=== PATIENT | female | born 1960 | race Caucasian/White ===

== ENCOUNTER 2024-03-09 07:32 | Emergency (ER) | payer MEDICARE, MEDICAID ==
[2024-03-09] MEDS ORDERED: Morphine 4 MG/ML VIAL ONE (08:00)
[2024-03-09] MEDS ORDERED: Ondansetron PF 4 MG/2 ML Vial ONE (08:00)
[2024-03-09 08:03] LABS: Bilirubin Negative (Negative); Blood, Urine Trace (Negative); Clarity Slightly Cloudy (Clear); Glucose, Urine (Dipstick) Negative (Negative); Ketone, Urine Negative (Negative); Leukocyte Trace (Negative); Nitrite Positive (Negative); Protein, Urine (Dipstick) Negative (Neg-Trace); Urobilinogen 0.2 mg/dL (Less than 2)
[2024-03-09 08:09] LABS: Bacteria/HPF 4+ HPF (None Seen); CAUTI Indications for Culture Pelvic or flank pain; Calcium Oxalate Crystals Rare HPF (None Seen); RBC/HPF 0-3 HPF (0-3); Squamous Epithelial 0-3 HPF (0-3)
[2024-03-09 08:10] LABS: Urine Culture Reflex Yes Yes
[2024-03-09 08:16] LABS: ALT (SGPT) 16 U/L (8-55); AST (SGOT) 15 U/L (5-34); Albumin 2.6 g/dL (3.4-4.8); Alkaline Phosphatase 120 U/L (40-110); Anion Gap 12 mmol/L (10-20); BUN (Urea Nitrogen) 9 mg/dL (9.8-20.1); Bilirubin, Total 0.4 mg/dL (0.2-1.2); Calc. Creatinine Clearance 0 mL/min (70-130); Carbon Dioxide 21 mmol/L (23-31); Chloride 108 mmol/L (98-107); Estimated GFR 98; Globulin 4.2 g/dL (2.4-3.5); Glucose 96 mg/dL (80-115); Lipase 12 U/L (8-78); Potassium 3.3 mmol/L (3.5-5.1); Protein, Total 6.8 g/dL (5.8-8.1); Sodium 138 mmol/L (136-145)
[2024-03-09 08:20] LABS: Band 8 % (5-11); Eosinophils 1 % (0-10); Hemoglobin 8.5 g/dL (12.0-16.0); Hypochromia SLIGHT = 6-15 cells (100X) (0-5/hpf); Lymphocytes 24 % (21-51); MDiff Complete? YES; Mean Corpuscular HGB CONC 31.5 g/dL (32.0-36.0); Mean Corpuscular Hemoglobin 28.9 pg (27.0-31.0); Mean Corpuscular Volume 91.6 fl (78.0-98.0); Mean Platelet Volume 10.3 fL (7.4-10.4); Monocytes 12 % (0-10); Myelocyte 1 % (0-0); Neutrophil 52 % (42-75); Platelet Adequacy Comment Appears Decreased; Platelet Count 32 10x3/uL (130-400); RBC Distribution Width 14.4 % (11.5-14.5); Red Blood Cell (RBC) Count 2.95 mill/uL (4.20-5.40); White Blood Cell (WBC) Count 4.3 10x3/uL (4.8-10.8)
[2024-03-09] MEDS ORDERED: cefTRIAXone (ROCEPHIN) 1 GM VIAL ONE (08:41)
[2024-03-09] MEDS ORDERED: Orphenadrine Citrate 60 MG/2 ML VIAL ONE (08:41)
[2024-03-09] MEDS ORDERED: Iopamidol 370 76% 100 ML VIAL ONE (09:00)
[2024-03-09] MEDS ORDERED: Lidocaine 4% Patch ONE (09:12)
[2024-03-09] MEDS ORDERED: Morphine 2 MG/ML VIAL ONE (09:35)
== END 2024-03-09 10:13 | disposition home or self-care (01) ==
LOC: MADERS 07:32
DX: N39.0 Urinary tract infection, site not specified (principal); K50.90 Crohn's disease, unspecified, without complications; E87.6 Hypokalemia; D64.9 Anemia, unspecified; M62.838 Other muscle spasm; F17.210 Nicotine dependence, cigarettes, uncomplicated
CPT/HCPCS: 74177; 80053; 81001; 82274; 83690; 85025; 87077; 87086; 87186; 96372; 96374; 96375; 96376; J0696; J2272; J2360; J2405; Q9967